=== PATIENT | female | born 1930 ===

== ENCOUNTER 2016-07-24 17:08 | Emergency (ER) | payer MEDICARE, BC ==
[~2016-07-24] VITALS: Ht 165.1 cm; Wt 57.7 kg
[2016-07-24 17:18] VITALS: TEMP 97.9
[2016-07-24] MEDS ORDERED: ZYLOPRIM 100MG100 MG PO (18:03)
[2016-07-24] MEDS ORDERED: FLONASEALLERGY NS (18:04)
[2016-07-24] MEDS ORDERED: TENORMIN 2525 MG/TAB PO (18:04)
[2016-07-24] MEDS ORDERED: TARCEVA25 MG PO (18:04)
[2016-07-24 18:05] LABS: BASO % 0.3 % (0.0-2.0); EOS # 0.1 (0.0-0.7); EOS % 1.7 % (0-4.0); GRAN # 4.2 (1.4-6.5); GRAN % 67.3 % (42.2-75.2); HEMATOCRIT 35.3 % (37.0-47.0); HEMOGLOBIN 11.8 g/dl (12.5-16.0); LYMPH # 1.4 (1.2-3.4); LYMPH % 21.7 % (20.0-51.0); MEAN CELL VOLUME 95 fl (80.0-100.0); MEAN CORPUSCULAR HEMOGLOBIN 32 pg (27.0-31.0); MEAN CORPUSCULAR HGB CONC 33 g/dl (33.0-37.0); MEAN PLATELET VOLUME 9.4 fl (7.4-10.4); MONO # 0.6 (0.1-0.6); MONO % 8.7 % (1.7-9.3); PLATELET COUNT 311 K/mm3 (130-400); RED BLOOD COUNT 3.72 M/mm3 (4.10-5.30); REDCELL DISTRIBUTION WIDTH-CV 12.2 % (11.5-14.5); WHITE BLOOD COUNT 6.3 K/mm3 (4.8-10.8)
[2016-07-24 18:13] LABS: ADJUSTED CALCIUM 9.1 mg/dL (8.4-10.2); ALANINE AMINOTRANSFERASE 22 U/L (9-52); ALBUMIN 3.5 gm/dL (3.5-5.0); ALKALINE PHOSPHATASE 86 U/L (50-136); ANION GAP 12 mmol/L (7-16); BILIRUBIN,TOTAL 0.8 mg/dL (0.0-1.0); BLOOD UREA NITROGEN 15 mg/dL (7-17); CALCIUM 8.7 mg/dL (8.4-10.2); CARBON DIOXIDE 27 mmol/L (22-30); CHLORIDE 102 mmol/L (98-107); CREATININE, serum 0.76 mg/dL (0.52-1.25); GLUCOSE 112 mg/dL (74-106); LIPASE 119 U/L (23-300); POTASSIUM 3.4 mmol/L (3.4-5.0); SODIUM 141 mmol/L (137-145); TOTAL PROTEIN 6.8 gm/dL (6.4-8.2)
[2016-07-24 18:25] LABS: B-TYPE NATRIURETIC PEPTIDE 242 pg/mL (0-450)
[2016-07-24 18:28] LABS: TROPONIN-I < 0.012 ng/mL (0.000-0.034)
[2016-07-24 21:09] VITALS: BP 161/90; PULSE 69
== END 2016-07-24 21:09 | disposition home or self-care (01) ==
LOC: COL.ER 17:08
PROVIDERS: Emergency Medicine
DX: R07.9 Chest pain, unspecified (principal); C34.01 Malignant neoplasm of right main bronchus
CPT/HCPCS: Q9967

== ENCOUNTER 2016-08-23 17:27 | Emergency (ER) | payer MEDICARE, BC ==
[~2016-08-23] VITALS: Ht 165.1 cm; Wt 54.5 kg
[~2016-08-23 17:27] MED LIST: FLONASEALLERGY NS; TARCEVA25 MG PO; TENORMIN 2525 MG/TAB PO; ZYLOPRIM 100MG100 MG PO
[2016-08-23 17:46] VITALS: TEMP 97.4
[2016-08-23 19:02] LABS: ALBUMIN 3.7 gm/dL (3.5-5.0); BILIRUBIN,TOTAL 0.7 mg/dL (0.0-1.0); CALCIUM 8.8 mg/dL (8.4-10.2); CREATININE, serum 1.15 mg/dL (0.52-1.25); TOTAL PROTEIN 7.4 gm/dL (6.4-8.2)
[2016-08-23 19:14] LABS: HEMOGLOBIN 12.2 g/dl (12.5-16.0); MEAN CELL VOLUME 89 fl (80.0-100.0); MEAN CORPUSCULAR HEMOGLOBIN 31 pg (27.0-31.0); MEAN CORPUSCULAR HGB CONC 35 g/dl (33.0-37.0); PLATELET COUNT 559 K/mm3 (130-400); RED BLOOD COUNT 3.99 M/mm3 (4.10-5.30); REDCELL DISTRIBUTION WIDTH-CV 11.1 % (11.5-14.5)
[2016-08-23 19:25] LABS: HEMATOCRIT 35.3 % (37.0-47.0)
[2016-08-23 19:26] LABS: ADD PATHOLOGY DIFF REVIEW NO
[2016-08-23] MEDS ORDERED: DILAUDID 2MG TAB2 MG PO (19:54)
[2016-08-23] MEDS ORDERED: XANAX 0.5MG0.5 MG PO (19:54)
[2016-08-23] MEDS ORDERED: GILOTRIF (19:55)
[2016-08-23 20:07] LABS: BAND 8 % (0-10); NEUTROPHILS 77 % (42.0-75.2); PLATELET ESTIMATE INCREASED (NORMAL); TOTAL CELLS COUNTED 100
[2016-08-23 20:44] VITALS: BP 120/70; PULSE 90
== END 2016-08-23 20:46 | disposition home or self-care (01) ==
LOC: COL.ER 17:27
PROVIDERS: Emergency Medicine
DX: R19.7 Diarrhea, unspecified (principal); I10 Essential (primary) hypertension; Z88.0 Allergy status to penicillin; Z79.899 Other long term (current) drug therapy; C79.31 Secondary malignant neoplasm of brain; Z85.118 Personal history of other malignant neoplasm of bronchus and lung
CPT/HCPCS: J7030